=== PATIENT | male | born 1980 | race African-American/Black ===

== ENCOUNTER 2016-11-21 00:53 | Inpatient (IN) | payer OTHER ==
--- NOTE | ~2016-11-21 | EKG ---
PATIENT: TERENCE AMIN UNIT #: [id number] Ventricular Rate: 107 BPM Atrial Rate: 107 BPM P-R Interval: 166 ms QRS Duration: 88 ms Q-T Interval: 346 ms QTC Calculation(Bezet): 461 ms P [place]: 61 degrees Calculated R [place]: 65 degrees Calculated T [place]: 25 degrees Diagnosis Line: Sinus tachycardia Diagnosis Line: Lateral injury pattern Diagnosis Line: Cannot rule out Acute pericarditis ST elevation, Diagnosis Line: consider early repolarization, pericarditis, or Diagnosis Line: injury Diagnosis Line: Abnormal ECG Diagnosis Line: No previous ECGs available Diagnosis Line: Confirmed by NURIS WEI MD ([id number]) on 11/22/2016 Diagnosis Line: 11:14:26 AM INTERPRETING MD: ERIBERTO GIANG
--- NOTE | ~2016-11-21 | CR63 ---
[facility] A Service of [facility] RADIOLOGY TEXT RESULTS PATIENT: TERENCE AMIN LOCATION: [facility] 568-01 : 82 UNIT #: [id number] AGE: [address]: Ana Singh MD SEX: M ORDER DR: [id number] [facility] [address] [facility]. [place], [place] [address] [id number] I MR#: [id number] Acc #: [id number] NAME: TERENCE AMIN. : 1980 SEX: M STUDY DATE/TIME: 11/25/2016 16:55 UNIT: [facility] ROOM: [facility] STUDY DESCRIPTION: CR Chest 2 View Attending Physician: Ana Singh M.D. Ordering Physician: Ana Singh M.D. Primary Care Physician: Primary Care Physician No MEDICAL IMAGING REPORT This report is preliminary unless electronic signature is present EXAM 2 views chest 11/25/2016 HISTORY Viral cardiomyopathy. Began one and one-half weeks ago. Chest pain left shoulder pain. FINDINGS AP radiograph of the chest is presented. Comparison 11/23/2016. No acute bony abnormality. The heart shows stable to slightly decreased. Mild enlargement. Lung volumes remain low. Central bronchovascular crowding. Subtle decrease in vascular prominence may be a reflection of decreasing vascular congestion. Decreased but not yet completely resolved patchy linear densities right lung base. Remainder right lung clear. Decreased patchy and linear/band-like densities left atj-gq-tqynw lung zone. The overall appearance likely reflects decreasing pulmonary edema with some residual components of the bilateral lung bases. Decreasing atelectasis may be present as well. No definite pleural effusion, no pneumothorax. Visualized upper abdomen unremarkable. Dictated by... Aamir Jacobsen M.D. THIS IS AN ELECTRONICALLY VERIFIED REPORT Aamir Jacobsen M.D. at 11/26/2016 4:26 PM Vick TD: 11/26/2016 07:30 JOB #: [id number] [facility] A Service of [facility] RADIOLOGY TEXT RESULTS PATIENT: TERENCE AMIN LOCATION: [facility] 568-01 : [birth year] UNIT #: [id number] AGE: [address]: Ana Singh MD SEX: M ORDER DR: MEDICAL IMAGING REPORT COPY
--- NOTE | ~2016-11-21 | NM69 ---
[facility] A Service of [facility] RADIOLOGY TEXT RESULTS PATIENT: TERENCE AMIN [facility] : [birth year] UNIT #: [id number] AGE: [address]: Ana Singh MD SEX: M ORDER DR: [id number] [facility] [address] [facility] [place], [place] [address] [id number] I MR#: [id number] Acc #: [id number] NAME: TERENCE AMIN : 1980 SEX: M STUDY DATE/TIME: 11/21/2016 20:50 [facility]: [facility] STUDY DESCRIPTION: NM Pulm Vent and Perf Attending Physician: Ana Singh M.D. Ordering Physician: Arnol Dixon M.D. Primary Care Physician: Primary Care Physician No MEDICAL IMAGING REPORT This report is preliminary unless electronic signature is present EXAM Ventilation perfusion lung scan, 11/21/2016 CLINICAL HISTORY 36-year-old male with shortness of breath status post cardiac cath. Patient has a history of pericarditis. TECHNIQUE 34 mCi of technetium 99m DTPA were aerosolized and inhaled for the ventilation study. 4.6 mCi of technetium-99m MAA were injected for the perfusion study. Gamma camera images were obtained and compared. FINDINGS There are no mismatched segments seen. Normal perfusion tracer activity is seen and no avascular areas are identified. Normal ventilation is present. No air trapping is suggested. IMPRESSION Negative study for PE. Dictated by... Nhan Bhatia M.D. THIS IS AN ELECTRONICALLY VERIFIED REPORT Nhan Bhatia M.D. at 11/22/2016 7:05 PM ARETHA/enrique TD: 11/21/2016 23:58 JOB #: [id number] [facility] A Service of [facility] RADIOLOGY TEXT RESULTS PATIENT: TERENCE AMIN [facility] : [birth year] UNIT #: [id number] AGE: [address]: Ana Singh MD SEX: M ORDER DR: MEDICAL IMAGING REPORT COPY
--- NOTE | ~2016-11-21 | CO ---
Unit #: [id number] #: [id number] Patient: TERENCE AMIN [id number] [address] [place], [place] [address] [id number] I MR#: [id number] NAME: TERENCE AMIN. ROOM: [facility] Age: 36 Sex: M Admission Date: 11/21/2016 : 1980 Attending Physician: Ana Singh M.D. Primary Care Physician: No Primary Care Physician Consultation Date: 11/21/2016 CONSULTATION REPORT REASON FOR CONSULTATION Chest pain. HISTORY OF PRESENT ILLNESS This is a very pleasant 36-year-old male with no reported prior past medical history. The patient states he was in his typical state of health until approximately one week ago, when he developed muscle aches, weakness, cough and a runny nose. He states he went to the [facility] for evaluation and was treated for a viral illness. He was given ibuprofen and some cough syrup. He reports to me he has been having some complaints of pain in his neck and some chest pain. However, yesterday evening he developed intense substernal chest pain with radiation into his left shoulder. He described the pain as sharp and shooting, but also aching and pressure. He states it was associated with shortness of breath and diaphoresis. He states this occurred as he was getting ready to go to bed. He presented to the emergency room secondary to pain. EKG shows ST elevation in all leads. There were no reciprocal changes noted. He reports his chest discomfort is worsened with inspiration and deep breaths as well as coughing. In the emergency room he was treated with aspirin, nitroglycerin and 30 mg of IV Toradol. Chest x-ray shows no acute disease. However, his BNP is elevated at 1152. The patient was also noted to have a point of care troponin initially of 2.12. Repeat troponin today is 1.31. At present the patient is resting in bed. He is in no acute distress. His mother is at bedside. He does report increasing issues with pain, worsened by inspiration and deep breathing. Cardiology was called and the patient did undergo a STAT two-dimensional echocardiogram, for which we are currently awaiting results. PAST MEDICAL HISTORY No reported past medical history. PAST SURGICAL HISTORY Hand surgery. SOCIAL HISTORY The patient lives with his mother. He is a lifelong nonsmoker. He denies any alcohol or illicit drug use. He is employed. FAMILY HISTORY Denies any family history of coronary artery disease. ALLERGIES No known drug allergies. Unit #: [id number] #: [id number] Patient: TERENCE AMIN HOME MEDICATIONS No daily home medications. He has been taking ibuprofen and cough syrup. REVIEW OF SYSTEMS Positive for chest pain, shortness of breath, cough, recent viral illness. Otherwise all systems were reviewed and negative. PHYSICAL EXAMINATION GENERAL: This is a pleasant 36-year-old male. He is currently in no acute distress. VITALS: Temperature 98.4, respiratory rate 16-18, pulse 95-110s, blood pressure 96/66-122/82. BMI is 28. HEENT: The pupils are equal and round. Mucous membranes are moist. NECK: Trachea is midline. No jugular venous distension. No thyromegaly or lymphadenopathy. CHEST: Clear to auscultation. Slightly diminished in the bases. HEART: S1 and S2. No murmur, gallop or rub. Slightly tachycardic. ABDOMEN: Soft, nontender and nondistended. Bowel sounds are present. EXTREMITIES: Pulses are palpable. No clubbing, cyanosis or edema. NEUROLOGIC: The patient is awake, alert and oriented times three. He moves all extremities equally and follows commands with ease. DIAGNOSTIC STUDIES IMAGING: Chest x-ray shows no acute abnormality. Low lung volumes with central bronchovascular crowding. LABORATORY: Initial point of care troponin was 2.12, repeat of 1.41 and troponin this morning was 1.34. Glucose 153, BUN 18, creatinine 1.2, sodium 137, potassium 4.1, chloride 100, CO2 27, albumin 3.2, AST 74, ALT 172, alkaline phosphatase 137, BNP 1152, hemoglobin A1c 6.1. Coags are within normal limits. Hemoglobin 13.6, hematocrit 40.8, white blood cell count 14.0, platelets 267. He currently has a hepatitis panel which is pending. Also, HIV test was done which was nonreactive. CARDIOVASCULAR: EKG shows diffuse ST segment elevation. No reciprocal changes suggestive of pericarditis. Sinus tachycardia. ASSESSMENT 1. ST elevation on EKG, consistent with pericarditis. 2. History of recent viral illness approximately one week ago. 3. Elevated troponin. 4. Elevated transaminase. 5. Elevated fasting glucose with increased hemoglobin A1c. PLAN The patient does have diffuse ST elevation on his EKG. Serial EKGs have been performed. EKG shows no reciprocal changes. The patient's symptoms are most likely consistent with acute viral induced pericarditis. However, Dr. Tavarez has reviewed his two-dimensional echocardiogram and his ejection fraction is down, reported to 35%-40%. He also was noted to have LVH. Therefore, it has been determined that it is best to take him to the catheterization lab later today to rule out any coronary artery disease. At present he has been started on ibuprofen and also low-dose colchicine. He has SCDs for DVT prophylaxis. Will continue to trend serial enzymes for now. Further recommendations will be based pending the outcome of the cardiac catheterization performed today by Dr. Dixon. He will also receive Lasix times one dose post cardiac catheterization later Unit #: [id number] #: [id number] Patient: TERENCE AMIN today. This has been discussed with the patient and the family and they are agreeable and willing to proceed. Dictated by... Chantel Delatorre A.P.R.N. for Alex Tavarez M.D. LMW/gz TD: 11/22/2016 09:11 JOB #: [id number] CONSULTATION REPORT X Chantel Delatorre APRN X CONSULTATION REPORT
--- NOTE | ~2016-11-21 | HP ---
Unit #: [id number] #: [id number] Patient: TREENCE AMIN [id number] [address] [place], [place] [address] [id number] I MR#: [id number] NAME: TERENCE AMIN. ROOM: 06097 Age: 36 Sex: M Admission Date: 11/21/2016 : 1980 Attending Physician: Edna Kuhn M.D. Primary Care Physician: No Primary Care Physician HISTORY AND PHYSICAL CHIEF COMPLAINT Myopericarditis. HISTORY This healthy 36-year-old male is admitted for chest pain. The patient states that he was in his usual state of health until one week prior to admission when he developed flu-like symptoms with malaise, some rhinorrhea, minor cough. Was seen at [facility] and was prescribed ibuprofen along with cough syrup. Had some minor chest pain two days ago. Last night, became increasingly short of breath with chest discomfort in the substernal region and left arm pain. Presented to this emergency department with abnormal EKG and mildly positive troponin. EKG shows ST wave abnormalities in all leads. A call was made to cardiology who feels that this is most consistent with pericarditis. The patient's chest discomfort is worse with inspiration. In the ER, he was given aspirin, nitroglycerin, and 30 mg of IV Toradol. Chest x-ray shows no acute disease. Currently, infrastructure technician is performing an echo by bedside. PAST MEDICAL HISTORY Hand surgery. ALLERGIES None. HOME MEDICATIONS Ibuprofen and cough syrup which includes Sudafed. FAMILY HISTORY Remote history of CAD. SOCIAL HISTORY The patient lives with his mother. He is a lifelong nonsmoker, does not drink alcohol. Does not use illicit drugs. REVIEW OF SYSTEMS Chest pain, shortness of breath, URI, hand surgery. All other systems were reviewed and are negative. PHYSICAL EXAMINATION GENERAL APPEARANCE: Pleasant 36-year-old male, currently in no acute distress. VITAL SIGNS: Temperature 98.4, pulse 116, respirations 27, blood pressure 123/76. O2 saturation 100% on room air. Unit #: [id number] #: [id number] Patient: TERENCE AMIN HEENT: Eyes PERRLA. Extraocular muscles are intact. Pharynx is benign. NECK: Supple without adenopathy or thyromegaly. No JVD that I can see. CHEST: Clear. CARDIAC: Slightly tachycardic S1 and S2 without murmur. ABDOMEN: Bowel sounds are present. No hepatosplenomegaly, tenderness or masses. EXTREMITIES: Without clubbing, cyanosis or edema. Pedal pulses are present. NEUROLOGIC EXAM: The patient is awake, alert, oriented. Cranial nerves are intact. Equal strength throughout. DIAGNOSTIC STUDIES LABORATORY: Admission labs - hematocrit is 40.9, white blood count is 11.5, normal platelet count. Troponin is 1.41. Coags are normal. SMA-12 - glucose 219, creatinine 1.5, chloride 98. AST 108, AL 193, alkaline phos. 142 BNP 1152. IMAGING: Chest x-ray - no acute disease. CARDIOVASCULAR: EKG - sinus tachycardia with diffuse ST wave abnormalities. Slight ST elevation in all leads consistent with pericarditis. ASSESSMENT 1. Likely viral-induced myopericarditis. 2. Elevated liver function tests, possibly related to viral etiology, possible related to medicines. 3. Mild hyperglycemia. 4. Mild elevation of creatinine. PLANS 1. Low dose ibuprofen, low dose colchicine. 2. Obtain sedimentation rate, CRP, REAL, hepatitis profile, HIV. 3. Check hemoglobin A1c and Accu-Cheks. 4. Cardiology to see. The case was discussed with cardiology who ordered a stat echo. 5. SCDs for DVT prophylaxis. Dictated by Edna Kuhn M.D. AML/df TD: 11/21/2016 05:48 JOB #: [id number] Unit #: [id number] #: [id number] Patient: TERENCE AMIN Charly HISTORY AND PHYSICAL X Edna Kuhn MD X HISTORY AND PHYSICAL
--- NOTE | ~2016-11-21 | A ---
[facility] Nutrition Therapy DATE: 11/23/16 Patient: TERENCE AMIN Physician: ALDO Address: [address] [place] [address] Room/Bed: [address], Zip: [place] [address] Admit Date: 11/21/16 Date of : [birth year] Height: 5 8 Weight: 190 86.5 NUTRITIONAL ASSESSMENT: REASON: Consulted to see pt for DM diet education 36 yo male admitted for pericarditis Anthropometrics: Ht: 68" Wt: 86.5 kg BMI: 29 Labs: HgbA1C 6.1 Accuchecks 115 Assessment: Chart reviewed, events noted. Pt has HgbA1C indicating borderline/ prediabetes. RD discussed DM and heart healthy diet strategies with the pt in detail. Pt was somewhat responsive to the education; however, he did not ask questions or voice motivation to make dietary changes. Pt seems to understand basic healthy diet information, and may benefit from follow up diet education with an outpatient RD. RD provided the pt with printed information for his reference, and encouraged him to contact RD with any questions. Recommendations: 1. Pt to follow a heart healthy diet with basic DM diet strategies as instructed by RD. 2. Pt may benefit from following up with an outpatient RD. Please consult RD for any further nutritional needs. Respectfully, ISABELLA QUILES RD, LD [employer] [facility] cc: client file
--- NOTE | ~2016-11-21 | CR72 ---
[facility] A Service of [facility] RADIOLOGY TEXT RESULTS PATIENT: TERENCE AMIN LOCATION: [place] [address] : [birth year] UNIT #: [id number] AGE: [address]: Ana Singh MD SEX: M ORDER DR: [id number] [facility] [address]. [place], [place] [address] [id number] I MR#: [id number] Acc #: [id number] NAME: TERENCE AMIN : 1980 SEX: M STUDY DATE/TIME: 11/23/2016 7:16 UNIT: [facility] ROOM: [facility] STUDY DESCRIPTION: CR Chest Single View Portable Attending Physician: Ana Singh M.D. Ordering Physician: Arnol Dixon M.D. Primary Care Physician: Primary Care Physician No MEDICAL IMAGING REPORT This report is preliminary unless electronic signature is present EXAM Portable chest, 11/23/2016 HISTORY Chest pain and congestive heart failure for the past 5 days. FINDINGS The cardiac and mediastinal structures are stable compared with 11/21/2016. There is poor inspiratory result with atelectasis at the lung bases. Lungs are otherwise clear. There are no pleural effusions. IMPRESSION Poor inspiratory result with atelectasis at the lung bases. Dictated by... Tay Marie M.D. THIS IS AN ELECTRONICALLY VERIFIED REPORT Tay Marie M.D. at 11/23/2016 4:57 PM MARISABEL/polo TD: 11/23/2016 10:37 JOB #: [id number] MEDICAL IMAGING REPORT COPY
--- NOTE | ~2016-11-21 | EKG ---
PATIENT: TERENCE AMIN UNIT #: [id number] Ventricular Rate: 96 BPM Atrial Rate: 96 BPM P-R Interval: 162 ms QRS Duration: 74 ms Q-T Interval: 352 ms QTC Calculation(Bezet): 444 ms P [place]: 52 degrees Calculated R [place]: 50 degrees Calculated T [place]: 21 degrees Diagnosis Line: Normal sinus rhythm Diagnosis Line: Abnormal ECG ST elevation, consider early Diagnosis Line: repolarization, pericarditis, or injury Diagnosis Line: Diagnosis Line: When compared with ECG of 21-NOV-2016 00:25, Diagnosis Line: (unconfirmed) Diagnosis Line: No significant change was found Diagnosis Line: Confirmed by NURIS WEI MD ([id number]) on 11/22/2016 Diagnosis Line: 6:17:46 PM INTERPRETING MD: ERIBERTO GIANG
--- NOTE | ~2016-11-21 | CR72 ---
[facility] A Service of [facility] RADIOLOGY TEXT RESULTS PATIENT: TERENCE AMIN LOCATION: [facility] 309-01 : [birth year] UNIT #: [id number] AGE: [address]: Ana Singh MD SEX: M ORDER DR: [id number] [facility] [address] [facility]. [place], [place] [address] [id number] I MR#: [id number] Acc #: [id number] NAME: TERENCE AMIN. : 1980 SEX: M STUDY DATE/TIME: 11/21/2016 1:16 UNIT: [facility] ROOM: 03022 STUDY DESCRIPTION: CR Chest Single View Portable Attending Physician: Ana Singh M.D. Ordering Physician: Braden Mcgowan M.D. Primary Care Physician: No Primary Care Physician MEDICAL IMAGING REPORT This report is preliminary unless electronic signature is present EXAM Portable AP view of the chest. COMPARISON None. INDICATIONS 36-year-old male with chest pain for 3 days. FINDINGS There is poor inspiratory effort. No evidence of pneumothorax or pleural effusion. There are low lung volumes with what is favored to represent a crowding of central bronchovascular structures. The heart size appears prominent, but this may be due to low lung volumes and portable technique. No convincing evidence of pneumonia. IMPRESSION No acute radiographic abnormality. Low lung volumes with central bronchovascular crowding. Dictated by... Thee Ghosh M.D. THIS IS AN ELECTRONICALLY VERIFIED REPORT Thee Ghosh M.D. at 11/21/2016 12:55 PM Leland TD: 11/21/2016 09:12 JOB #: [id number] MEDICAL IMAGING REPORT COPY
--- NOTE | ~2016-11-21 | DS ---
Unit #: [id number] #: [id number] Patient: TERENCE PEGUERO [id number] [address] [address] [id number] MR#: [id number] NAME: TERENCE PEGUERO. ROOM: 568 Age: 36 Sex: M Admission Date: 11/21/2016 : 1980 Discharge Date: 11/27/2016 Attending Physician: Ana Singh M.D. Primary Care Physician: No Primary Care Physician DISCHARGE SUMMARY PRIMARY CARE PHYSICIAN None. PRINCIPAL DIAGNOSES 1. Acute viral myocarditis. 2. Acute systolic congestive heart failure with ejection fraction of 20% to 30%. 3. Acute kidney injury, questionable chronic kidney disease, discharge creatinine 1.4. 4. Medication-induced hypotension. 5. Transaminitis, question viral in origin versus passive congestion, now resolved. 6. Insulin resistance with hemoglobin A1c of 6.1. 7. Moderate protein malnutrition. 8. Acute bronchitis (1) interstitial pneumonia. 9. Leukocytosis, question reactive. [employer] Dr. Tavarez, Cardiology. PROCEDURE 1. A two-dimensional echocardiogram with findings of left ventricular hypertrophy, ejection fraction 35% to 40%, intraventricular conduction delay, 1 to 2+ tricuspid regurgitation. 2. Left-sided heart catheterization on November 22, 2016 with ejection fraction of 20%. Left ventricular end diastolic pressure was 38 mm. Coronaries were otherwise normal. 3. Chest x-ray on November 21, 2016 with central bronchovascular crowding. 4. V/Q lung scan on November 21, 2016, which was negative for PE. 5. Chest x-ray on November 23, 2016, with atelectasis in the lung bases. 6. Chest x-ray on November 25, 2016, with central bronchovascular crowding, decreased patchy linear densities in the right base, and pulmonary edema was noted. CLINICAL HISTORY AND HOSPITAL COURSE Mr. Peguero is a very nice 36-year-old -[place] male, who presents to the emergency department with complaints of chest pain. In the emergency department, he was found to have ST wave abnormalities in essentially all the leads. A troponin was found to be elevated at 1.34. The patient was subsequently admitted. The patient was placed on empiric treatment, namely colchicine and ibuprofen, for presumed myocarditis. The patient underwent STAT two-dimensional echocardiogram with findings as noted. There were Unit #: [id number] #: [id number] Patient: TERENCE PEGUERO concerns given echo findings that patient may have some underlying coronary artery disease, though risk factors essentially included only family history. The patient subsequently underwent heart cath with no findings of significant coronary artery disease and thus indeed is felt to be myocarditis. The patient was placed in the ICU following all this testing. The patient was placed on dobutamine drip in addition to Lasix. He was also started on Entresto but unfortunately developed some significant hypotension and Entresto had to be discontinued. Ultimately, patient was tapered off dobutamine drip and has been transitioned to oral diuretics. He is being continued on a low-dose ARB in addition to a beta britney and spironolactone. The patient did have a significant elevation in creatinine following admission. Admission creatinine was 1.5 which may indeed be patient's baseline but increased to as high as 1.8. I will note creatinine improved on diuresis and on day of discharge is 1.4. This may be artificially high secondary to his ARB treatment in combination with his diuresis but it is clinically stable. I will note that his urinalysis reveals only minimal protein, 1+, and this can be followed up again as an outpatient. The patient had viral symptoms prior to the onset of his chest pain indicating this was most likely a viral myocarditis and ultimately colchicine was discontinued both given it was likely viral in origin and did develop some acute kidney injury. He was swabbed for influenza the week prior to admission. This was negative; however, he continued to have persistent leukocytosis of anywhere from 14 to 16,000 with perhaps a low-grade fever of 99. I am going to place him on azithromycin and his leukocytosis can be followed up as an outpatient. The patient is otherwise clinically stable and will be discharged home later today. DISCHARGE CONDITION Stable. DISCHARGE STATUS Discharge to home. DISCHARGE MEDICATIONS 1. Azithromycin 500 mg p.o. daily for another three days. 2. Coreg 6.25 mg b.i.d. 3. Lasix 80 mg b.i.d. 4. Cozaar 25 mg half tablet b.i.d. 5. Spironolactone 25 mg half tablet daily. DISCHARGE INSTRUCTIONS 1. The patient was instructed to follow a heart healthy constant carb diet, and he has received diabetic education. I do not see a need to check Accu-Cheks at this time. 2. He can increase activity as tolerated and be off work as long as felt necessary per Dr. Tavarez. FOLLOWUP The patient will followup with Dr. Tavarez within the next two to three weeks. Needs followup BNP at that time. Will try to arrange an outpatient primary care physician who can followup on his leukocytosis and perhaps make referral to nephrology if creatinine continues to increase. Unit #: [id number] #: [id number] Patient: PEGUEROTERENCE CAMARILLO Charly Dictated by... Ana Singh M.D. SIENA/kolby TD: 11/28/2016 12:58 JOB #: [id number] DISCHARGE SUMMARY X Ana Singh MD X DISCHARGE SUMMARY
[~2016-11-21 00:53] MED LIST: FLEXERIL PO; IBUPROFEN100 MG PO
[2016-11-21 01:04] LABS: BASOPHIL% 0.3 % (0-2.5); DIFF IND NO; EOSINOPHIL# 0.6 X10e3 (0-0.7); EOSINOPHIL% 4.8 % (0.0-7.0); HEMATOCRIT 40.9 % (38.0-50.0); HEMOGLOBIN 13.7 gm/dL (13.0-16.0); LYMPHOCYTE# 1.9 X10e3 (1.0-3.5); LYMPHOCYTE% 16.3 % (17.0-45.0); MEAN CELL VOLUME 86.3 FL (83-96); MEAN CORPUSCULAR HEMOGLOBIN 28.9 PG (28-34); MEAN CORPUSCULAR HGB CONC 33.5 g/dL (30-36); MEAN PLATELET VOLUME 8.5 FL (6.5-11.5); MONOCYTE# 1.8 X10e3 (0-1.0); MONOCYTE% 15.2 % (3.0-12.0); NEUTROPHIL# 7.3 X10e3 (1.5-7.1); NEUTROPHIL% 63.4 % (40-75); PLATELET COUNT 262 X10e3 (140-420); RED BLOOD COUNT 4.74 X10e (3.90-5.60); RED CELL DISTRIBUTION WIDTH 13.1 % (11.0-15.5); WHITE BLOOD COUNT 11.5 X10e3 (4.0-10.5)
[2016-11-21 01:08] LABS: POC - CKMB 7.4 ng/mL (0.0-7.9); POC - TROPONIN 2.12 ng/mL (<=0.05)
[2016-11-21 01:27] LABS: PROTHROMBIN TIME (PATIENT) 10.9 SECONDS (9.6-11.5)
[2016-11-21 01:29] LABS: ALBUMIN SERUM 3.5 g/dL (3.5-5.0); ALKALINE PHOSPHATASE 142 U/L (32-92); ALT (SGPT) 193 U/L (10-40); AST (SGOT) 108 U/L (10-42); BILIRUBIN, DIRECT 0.2 mg/dL (0.0-0.2); BILIRUBIN,INDIRECT 0.3 mg/dL (0.0-0.9); BILIRUBIN,TOTAL 0.5 mg/dL (0.2-2.0); BLOOD UREA NITROGEN 17 mg/dL (9-23); BUN/CREATININE RATIO 11.33; CARBON DIOXIDE 30 mmol/L (22-31); CHLORIDE 98 mmol/L (100-111); CREATININE SERUM 1.5 mg/dL (0.6-1.4); GLOM FILT RATE Estimated ABOVE60 mL/min (>60); GLUCOSE FASTING 219 mg/dL (70-110); POTASSIUM 3.6 mmol/L (3.5-5.1); PROTEIN TOTAL SERUM 7.3 g/dL (6.0-8.3); SODIUM 137 mmol/L (135-145)
[2016-11-21 02:11] LABS: POC - CKMB 4.9 ng/mL (0.0-7.9); POC - TROPONIN 1.41 ng/mL (<=0.05)
[2016-11-21 07:25] LABS: BASOPHIL# 0.1 X10e3 (0-0.3); BASOPHIL% 0.4 % (0-2.5); EOSINOPHIL# 0.4 X10e3 (0-0.7); EOSINOPHIL% 2.8 % (0.0-7.0); HEMATOCRIT 40.8 % (38.0-50.0); HEMOGLOBIN 13.6 gm/dL (13.0-16.0); LYMPHOCYTE% 14.1 % (17.0-45.0); MEAN CELL VOLUME 86.1 FL (83-96); MEAN CORPUSCULAR HEMOGLOBIN 28.7 PG (28-34); MEAN CORPUSCULAR HGB CONC 33.3 g/dL (30-36); MEAN PLATELET VOLUME 8.2 FL (6.5-11.5); MONOCYTE# 1.9 X10e3 (0-1.0); MONOCYTE% 13.6 % (3.0-12.0); NEUTROPHIL# 9.7 X10e3 (1.5-7.1); NEUTROPHIL% 69.1 % (40-75); PLATELET COUNT 267 X10e3 (140-420); RED BLOOD COUNT 4.74 X10e (3.90-5.60); RED CELL DISTRIBUTION WIDTH 13.3 % (11.0-15.5)
[2016-11-21 07:29] LABS: DIFF IND NO
[2016-11-21 10:18] LABS: ALBUMIN SERUM 3.2 g/dL (3.5-5.0); ALKALINE PHOSPHATASE 137 U/L (32-92); ALT (SGPT) 172 U/L (10-40); AST (SGOT) 74 U/L (10-42); BILIRUBIN,TOTAL 0.7 mg/dL (0.2-2.0); BLOOD UREA NITROGEN 18 mg/dL (9-23); CALCIUM SERUM 9.3 mg/dL (8.4-10.2); CARBON DIOXIDE 27 mmol/L (22-31); CHLORIDE 100 mmol/L (100-111); CK TOTAL 268 IU/L (36-174); CREATININE SERUM 1.2 mg/dL (0.6-1.4); GLOM FILT RATE Estimated ABOVE60 mL/min (>60); GLUCOSE FASTING 153 mg/dL (70-110); POTASSIUM 4.1 mmol/L (3.5-5.1); PROTEIN TOTAL SERUM 6.9 g/dL (6.0-8.3); SODIUM 137 mmol/L (135-145)
[2016-11-21 10:39] LABS: %MB 3.5 % (0.0-4.0); MB 9.5 ng/ml
[2016-11-21 16:49] LABS: %MB 10.1 % (0.0-4.0); MB 19.8 ng/ml
[2016-11-21 23:30] LABS: %MB 3.6 % (0.0-4.0); MB 5.9 ng/ml
[2016-11-22 06:11] LABS: HEMOGLOBIN 12.8 gm/dL (13.0-16.0); MEAN CORPUSCULAR HEMOGLOBIN 28.3 PG (28-34); MEAN CORPUSCULAR HGB CONC 32.9 g/dL (30-36); MEAN PLATELET VOLUME 8.5 FL (6.5-11.5); RED BLOOD COUNT 4.53 X10e (3.90-5.60); RED CELL DISTRIBUTION WIDTH 13.7 % (11.0-15.5); WHITE BLOOD COUNT 14.7 X10e3 (4.0-10.5)
[2016-11-22 07:09] LABS: ALBUMIN SERUM 2.7 g/dL (3.5-5.0); BUN/CREATININE RATIO 12.77; CALCIUM SERUM 8.1 mg/dL (8.4-10.2); CREATININE SERUM 1.8 mg/dL (0.6-1.4); GLOM FILT RATE Estimated 55.8 mL/min (>60); MAGNESIUM 1.8 mg/dL (1.6-3.0); POTASSIUM 4.2 mmol/L (3.5-5.1); PROTEIN TOTAL SERUM 5.8 g/dL (6.0-8.3)
[2016-11-22 07:22] LABS: %MB 6.7 % (0.0-4.0); MB 8.5 ng/ml
[2016-11-22 11:13] LABS: FREE T3 2.9 pg/mL (2.5-3.9)
[2016-11-22 11:14] LABS: FREE THYROXIN (T4) 1.06 ng/dL (0.58-1.64)
[2016-11-22 17:55] LABS: BLOOD UREA NITROGEN 28 mg/dL (9-23); CALCIUM SERUM 7.9 mg/dL (8.4-10.2); CARBON DIOXIDE 25 mmol/L (22-31); CHLORIDE 94 mmol/L (100-111); CREATININE SERUM 1.6 mg/dL (0.6-1.4); GLOM FILT RATE Estimated ABOVE60 mL/min (>60); GLUCOSE FASTING 145 mg/dL (70-110); POTASSIUM 3.7 mmol/L (3.5-5.1); SODIUM 130 mmol/L (135-145)
[2016-11-22 18:32] LABS: URINE SOURCE CATH
[2016-11-22 18:41] LABS: URINE APPEARANCE CLEAR; URINE BILIRUBIN NEG (NEG); URINE BLOOD TRACE (NEG); URINE COLOR DK YELLOW; URINE GLUCOSE NEG (NEG); URINE KETONE NEG (NEG); URINE LEUKOCYTE ESTERASE NEG (NEG); URINE NITRATE NEG (NEG); URINE PH 5.5 (5-8); URINE PROTEIN 1+ (NEG); URINE SPECIFIC GRAVITY 1.029 (1.003-1.035)
[2016-11-22 18:43] LABS: CULTURE INDICATED? YES; URINE BACTERIA AUWI NEG (NEGATIVE); URINE SQUAMOUS EPITHELIAL CELL NONE SEEN /[HPF]
[2016-11-23 05:26] LABS: BASOPHIL# 0.1 X10e3 (0-0.3); BASOPHIL% 0.4 % (0-2.5); EOSINOPHIL# 0.3 X10e3 (0-0.7); HEMOGLOBIN 12.6 gm/dL (13.0-16.0); LYMPHOCYTE# 1.7 X10e3 (1.0-3.5); LYMPHOCYTE% 10.3 % (17.0-45.0); MEAN CORPUSCULAR HEMOGLOBIN 28.4 PG (28-34); MEAN CORPUSCULAR HGB CONC 33.1 g/dL (30-36); MEAN PLATELET VOLUME 8.2 FL (6.5-11.5); NEUTROPHIL# 12.6 X10e3 (1.5-7.1); NEUTROPHIL% 75.3 % (40-75); PLATELET COUNT 314 X10e3 (140-420); RED BLOOD COUNT 4.42 X10e (3.90-5.60); RED CELL DISTRIBUTION WIDTH 13.6 % (11.0-15.5); WHITE BLOOD COUNT 16.7 X10e3 (4.0-10.5)
[2016-11-23 05:29] LABS: DIFF IND YES
[2016-11-23 05:58] LABS: PLATELET ESTIMATE NORMAL (NORMAL); RBC NORMAL YES
[2016-11-23 06:21] LABS: BUN/CREATININE RATIO 18.82; CREATININE SERUM 1.7 mg/dL (0.6-1.4); GLOM FILT RATE Estimated 59.6 mL/min (>60); POTASSIUM 4.3 mmol/L (3.5-5.1)
[2016-11-24 05:19] LABS: HEMATOCRIT 37.4 % (38.0-50.0); HEMOGLOBIN 12.6 gm/dL (13.0-16.0); MEAN CORPUSCULAR HGB CONC 33.8 g/dL (30-36); MEAN PLATELET VOLUME 8.2 FL (6.5-11.5); RED BLOOD COUNT 4.35 X10e (3.90-5.60); RED CELL DISTRIBUTION WIDTH 13.9 % (11.0-15.5)
[2016-11-24 06:48] LABS: BLOOD UREA NITROGEN 32 mg/dL (9-23); BUN/CREATININE RATIO 21.33; CARBON DIOXIDE 26 mmol/L (22-31); CHLORIDE 98 mmol/L (100-111); CREATININE SERUM 1.5 mg/dL (0.6-1.4); GLOM FILT RATE Estimated ABOVE60 mL/min (>60); GLUCOSE FASTING 125 mg/dL (70-110); MAGNESIUM 2.3 mg/dL (1.6-3.0); POTASSIUM 4.2 mmol/L (3.5-5.1); SODIUM 136 mmol/L (135-145)
[2016-11-24 07:55] LABS: HA AB IGM (HEPPAN) Nonreactive (Nonreactive); HB CORE AB IGM (HEPPAN) Nonreactive (Nonreactive); HB S AG (HEPPAN) Nonreactive (Nonreactive); HEP C AB (HEPPAN) Nonreactive (Nonreactive); HEP C AB SIGNAL TO CUTOFF 0.04 ratio (<1.00)
[2016-11-24 22:11] LABS: ANA SCREEN Negative (Negative)
[2016-11-25 07:08] LABS: HEMATOCRIT 37.5 % (38.0-50.0); HEMOGLOBIN 12.5 gm/dL (13.0-16.0); MEAN CELL VOLUME 85.7 FL (83-96); MEAN CORPUSCULAR HEMOGLOBIN 28.7 PG (28-34); MEAN CORPUSCULAR HGB CONC 33.5 g/dL (30-36); MEAN PLATELET VOLUME 7.9 FL (6.5-11.5); RED BLOOD COUNT 4.38 X10e (3.90-5.60)
[2016-11-25 07:38] LABS: BLOOD UREA NITROGEN 26 mg/dL (9-23); CALCIUM SERUM 7.9 mg/dL (8.4-10.2); CARBON DIOXIDE 28 mmol/L (22-31); CHLORIDE 99 mmol/L (100-111); CREATININE SERUM 1.3 mg/dL (0.6-1.4); GLOM FILT RATE Estimated ABOVE60 mL/min (>60); GLUCOSE FASTING 122 mg/dL (70-110); MAGNESIUM 2.4 mg/dL (1.6-3.0); POTASSIUM 4.1 mmol/L (3.5-5.1); SODIUM 134 mmol/L (135-145)
[2016-11-26 06:35] LABS: HEMATOCRIT 38.4 % (38.0-50.0); HEMOGLOBIN 12.8 gm/dL (13.0-16.0); MEAN CELL VOLUME 86.2 FL (83-96); MEAN CORPUSCULAR HEMOGLOBIN 28.7 PG (28-34); MEAN CORPUSCULAR HGB CONC 33.3 g/dL (30-36); MEAN PLATELET VOLUME 7.8 FL (6.5-11.5); RED BLOOD COUNT 4.46 X10e (3.90-5.60); RED CELL DISTRIBUTION WIDTH 13.9 % (11.0-15.5)
[2016-11-26 07:10] LABS: BLOOD UREA NITROGEN 26 mg/dL (9-23); CALCIUM SERUM 8.6 mg/dL (8.4-10.2); CARBON DIOXIDE 28 mmol/L (22-31); CHLORIDE 94 mmol/L (100-111); CREATININE SERUM 1.3 mg/dL (0.6-1.4); GLOM FILT RATE Estimated ABOVE60 mL/min (>60); GLUCOSE FASTING 124 mg/dL (70-110); POTASSIUM 4.2 mmol/L (3.5-5.1); SODIUM 134 mmol/L (135-145)
[2016-11-27 05:28] LABS: HEMATOCRIT 38.3 % (38.0-50.0); HEMOGLOBIN 12.8 gm/dL (13.0-16.0); MEAN CELL VOLUME 86.4 FL (83-96); MEAN CORPUSCULAR HEMOGLOBIN 28.8 PG (28-34); MEAN CORPUSCULAR HGB CONC 33.3 g/dL (30-36); RED BLOOD COUNT 4.44 X10e (3.90-5.60); RED CELL DISTRIBUTION WIDTH 13.9 % (11.0-15.5); WHITE BLOOD COUNT 16.1 X10e3 (4.0-10.5)
[2016-11-27 06:18] LABS: BLOOD UREA NITROGEN 38 mg/dL (9-23); BUN/CREATININE RATIO 27.14; CALCIUM SERUM 8.8 mg/dL (8.4-10.2); CARBON DIOXIDE 30 mmol/L (22-31); CHLORIDE 93 mmol/L (100-111); CREATININE SERUM 1.4 mg/dL (0.6-1.4); GLOM FILT RATE Estimated ABOVE60 mL/min (>60); GLUCOSE FASTING 122 mg/dL (70-110); POTASSIUM 4.4 mmol/L (3.5-5.1); SODIUM 137 mmol/L (135-145)
[2016-11-27] MEDS ORDERED: FUROSEMIDE80 MG PO (12:46)
[2016-11-27] MEDS ORDERED: COREG6.25 MG PO (12:46)
[2016-11-27] MEDS ORDERED: AZITHROMYCIN500 MG PO (12:47)
[2016-11-27] MEDS ORDERED: COZAAR PO (12:47)
[2016-11-27] MEDS ORDERED: ALDACTONE25 MG PO (12:48)
== END 2016-11-27 13:13 | disposition home or self-care (01) | DRG 286 ==
LOC: CED 00:53 → CEDOF 03:00 → C3A PCU 10:04 → CICCU3 14:45 → C5C 11-23 11:52
PROVIDERS: Emergency Medicine; Internal Medicine
PROC: 4A023N7 Measurement of Cardiac Sampling and Pressure, Left Heart, Percutaneous Approach (ICD-10-PCS; principal; 2016-11-21)
PROC: B211YZZ Fluoroscopy of Multiple Coronary Arteries using Other Contrast (ICD-10-PCS; 2016-11-21)
PROC: B215YZZ Fluoroscopy of Left Heart using Other Contrast (ICD-10-PCS; 2016-11-21)
DX: I40.0 Infective myocarditis (principal); I50.21 Acute systolic (congestive) heart failure; I40.9 Acute myocarditis, unspecified; E44.0 Moderate protein-calorie malnutrition; E88.81 Metabolic syndrome and other insulin resistance; I42.8 Other cardiomyopathies; J20.9 Acute bronchitis, unspecified; R73.9 Hyperglycemia, unspecified; Z68.29 Body mass index [BMI] 29.0-29.9, adult
CPT/HCPCS: 36415; 71010; 71020; 78582; 80048; 80053; 80061; 80074; 80076; 81003; 82550; 82553; 82570; 82947; 83036; 83735; 83880; 84300; 84439; 84443; 84481; 84484; 85025; 85027; 85379; 85610; 85652; 85730; 86038; 86039; 86140; 87086; 87806; 93005; 93306; 94760; 96374; 97161; 99285; A9540; A9567; C1769; C1887; C1894; J1160; J1250; J1644; J1885; J1940; J2250; J2270; J3010

== ENCOUNTER → 2016-12-18 | Outpatient (CLI) | payer OTHER ==
[~2016-12-18] MED LIST changes: +ALDACTONE25 MG PO; +AZITHROMYCIN500 MG PO; +COREG6.25 MG PO; +COZAAR PO; +FUROSEMIDE80 MG PO
--- NOTE | ~2016-12-18 | US77 ---
[facility] A Service of [facility] RADIOLOGY TEXT RESULTS PATIENT: TERENCE AMIN LOCATION: [facility] : 84 UNIT #: [id number] AGE: [address]: Jaleesa Lantigua MD SEX: M ORDER DR: [id number] [place], [place] [address] [id number] O MR#: [id number] Acc #: [id number] NAME: TERENCE AMIN : 1980 SEX: M STUDY DATE/TIME: 12/18/2016 14:09 UNIT: US ROOM: STUDY DESCRIPTION: US Kidney Bilateral Complete Attending Physician: Jaleesa Lantigua M.D. Referring Physician: Jaleesa Lantigua M.D. Ordering Physician: Jaleesa Lantigua M.D. Primary Care Physician: Jaleesa Lantigua M.D. MEDICAL IMAGING REPORT This report is preliminary unless electronic signature is present EXAM Bilateral ultrasound of the kidneys, 12/18/16 HISTORY Chronic kidney disease, stage 1. COMPARISON STUDIES None. FINDINGS The right kidney is 9.4 cm in length. There is no masses or hydronephrosis. Cortex is normal in echogenicity. The bladder is normal in appearance. The left kidney is 8.1 cm in length and also appears normal. IMPRESSION Normal bilateral renal ultrasound. Dictated by... Surinder Rodriguez M.D. THIS IS AN ELECTRONICALLY VERIFIED REPORT Surinder Rodriguez M.D. at 12/19/2016 7:07 AM TESS/jeremy TD: 12/18/2016 20:33 JOB #: [id number] MEDICAL IMAGING REPORT [facility] A Service [facility] RADIOLOGY TEXT RESULTS PATIENT: TERENCE AMIN LOCATION: [facility] : 84 UNIT #: [id number] AGE: [address]: Jaleesa Lantigua MD SEX: M ORDER DR: Page 1 of 1 COPY
== END | disposition home or self-care (01) ==
LOC: CGUS 13:46
DX: N18.1 Chronic kidney disease, stage 1 (principal)
CPT/HCPCS: 76770

== ENCOUNTER → 2017-04-08 | Outpatient (CLI) | payer OTHER | END | disposition home or self-care (01) | LOC: CECH 12:15 | DX: I50.22 Chronic systolic (congestive) heart failure (principal); I36.1 Nonrheumatic tricuspid (valve) insufficiency | CPT/HCPCS: 93306 ==

== ENCOUNTER 2017-04-14 18:15 | Emergency (ER) | payer OTHER ==
[~2017-04-14] VITALS: Ht 175.3 cm; Wt 80.7 kg
--- NOTE | ~2017-04-14 | CR72 ---
[facility] A Service of [facility] RADIOLOGY TEXT RESULTS PATIENT: TERENCE AMIN LOCATION: [facility] : 84 UNIT #: [id number] AGE: [address]: Chula Ortiz MD SEX: M ORDER DR: [id number] [facility] [address] [place], [place] [address] [id number] MR#: [id number] Acc #: [id number] NAME: TERENCE AMIN. : 1980 SEX: M STUDY DATE/TIME: 04/14/2017 19:51 UNIT: [facility] ROOM: STUDY DESCRIPTION: CR Chest Single View Portable Attending Physician: Chula Ortiz M.D. Ordering Physician: Chula Ortiz M.D. Primary Care Physician: Jaleesa Lantigua M.D. MEDICAL IMAGING REPORT This report is preliminary unless electronic signature is present EXAM Portable chest HISTORY Chest pain onset 5:00 this morning. FINDINGS A single AP portable view of the chest shows both lungs to be clear. The heart is normal in size. The mediastinal contour is normal. No significant bone abnormalities are seen. IMPRESSION Normal portable chest. Dictated by... Loli Connor M.D. THIS IS AN ELECTRONICALLY VERIFIED REPORT Loli Connor M.D. at 04/15/2017 5:38 PM WILFRID/anne TD: 04/15/2017 08:39 JOB #: [id number] MEDICAL IMAGING REPORT Page 1 of 1 COPY
--- NOTE | ~2017-04-14 | EKG ---
PATIENT: TERENCE AMIN UNIT #: [id number] Ventricular Rate: 74 BPM Atrial Rate: 74 BPM P-R Interval: 182 ms QRS Duration: 84 ms Q-T Interval: 374 ms QTC Calculation(Bezet): 415 ms P Sharon: 51 degrees Calculated R Sharon: 29 degrees Calculated T Sharon: 26 degrees Diagnosis Line: Normal sinus rhythm Diagnosis Line: Normal ECG Diagnosis Line: When compared with ECG of 21-NOV-2016 09:09, Diagnosis Line: ST no longer elevated in Inferior leads Diagnosis Line: ST no longer elevated in Lateral leads Diagnosis Line: Nonspecific T wave abnormality no longer evident Diagnosis Line: in Lateral leads Diagnosis Line: Confirmed by NICHOL SOLIS MD ([id number]) on Diagnosis Line: 04/14/2017 11:18:21 PM INTERPRETING MD: IRMA GIANG
[2017-04-14 19:46] LABS: POC - CKMB 2.7 ng/mL (0.0-7.9); POC - TROPONIN <0.05 ng/mL (<=0.05)
[2017-04-14 19:52] LABS: BASOPHIL# 0.1 X10e3 (0-0.3); BASOPHIL% 0.6 % (0-2.5); EOSINOPHIL# 0.3 X10e3 (0-0.7); EOSINOPHIL% 3.9 % (0.0-7.0); HEMATOCRIT 44.9 % (38.0-50.0); HEMOGLOBIN 14.8 gm/dL (13.0-16.0); LYMPHOCYTE# 3.4 X10e3 (1.0-3.5); MEAN CELL VOLUME 88.9 FL (83-96); MEAN CORPUSCULAR HEMOGLOBIN 29.3 PG (28-34); MEAN CORPUSCULAR HGB CONC 32.9 g/dL (30-36); MEAN PLATELET VOLUME 8.4 FL (6.5-11.5); MONOCYTE# 0.5 X10e3 (0-1.0); NEUTROPHIL# 4.4 X10e3 (1.5-7.1); NEUTROPHIL% 50.5 % (40-75); PLATELET COUNT 194 X10e3 (140-420); RED BLOOD COUNT 5.05 X10e (3.90-5.60); RED CELL DISTRIBUTION WIDTH 13.3 % (11.0-15.5); WHITE BLOOD COUNT 8.6 X10e3 (4.0-10.5)
[2017-04-14 19:53] LABS: DIFF IND NO
[2017-04-14 20:13] LABS: ALBUMIN SERUM 4.4 g/dL (3.5-5.0); BILIRUBIN, DIRECT 0.1 mg/dL (0.0-0.2); BILIRUBIN,INDIRECT 0.8 mg/dL (0.0-0.9); BILIRUBIN,TOTAL 0.9 mg/dL (0.2-2.0); BUN/CREATININE RATIO 18.18; CALCIUM SERUM 9.1 mg/dL (8.4-10.2); CREATININE SERUM 1.1 mg/dL (0.6-1.4); POTASSIUM 3.6 mmol/L (3.5-5.1); PROTEIN TOTAL SERUM 7.1 g/dL (6.0-8.3)
[2017-04-14 21:54] LABS: POC - CKMB 2.6 ng/mL (0.0-7.9); POC - TROPONIN <0.05 ng/mL (<=0.05)
== END 2017-04-14 22:25 | disposition home or self-care (01) ==
LOC: CED 18:15
PROVIDERS: Emergency Medicine
DX: I10 Essential (primary) hypertension (principal)
CPT/HCPCS: 36415; 71010; 80048; 80076; 82553; 83880; 84484; 85025; 93005; 96374; 99285; J1885